=== PATIENT | male | born 1955 | race Caucasian/White ===

== ENCOUNTER 2020-01-15 10:54 | Emergency (ER) | payer OTHER, SELFPAY ==
--- NOTE | ~2020-01-15 | XR_ITS ---
EXAMINATION: XR hip RT min 2V DATE: 01/15/2020 11:28 INDICATION: One month of right hip pain TECHNIQUE: Anteroposterior , frog leg and cross-table lateral views of the right hip were obtained. COMPARISON: None. FINDINGS: Bone alignment is normal. No fracture. No suspected avascular necrosis at the right femoral head. Rig ht hip and sacroiliac joint spaces appear normal. Enthesophytes along the anterior iliac spine and gr eater trochanter. Couple sclerotic lesions at the right ischium most likely representing bone islands . IMPRESSION: 1. Normal right hip joint space with no acute osseous abnormality. Reviewed, dictated and finalized at location A.
[2020-01-15 11:04] VITALS: BP 126/70; PULSE 88; RESP 18; TEMP 36.9; O2SAT 98
--- NOTE | 2020-01-15 11:04 | ED.LOWEXIN ---
HPI - Extremity Injury (Lower) General Chief Complaint: Extremity Injury, Lower Stated Complaint: leg pain Time Seen by Provider: 01/15/20 11:08 Source: patient and RN notes reviewed Mode of arrival: ambulatory Limitations: no limitations History of Present Illness HPI Narrative: 64-year-old male presents with concern for right groin/hip pain. Reports pain near the fold of his right upper leg between the hip and the groin. Reports tenderness in this area. Reports pain is exacerbated with movement, getting out of bed. Reports he is able to find positions of comfort. Denies abdominal pain, dysuria, hematuria, slow urine stream, bulging masses, nausea, vomiting, diarrhea, constipation, back pain, painful ejaculation. He denies any injury, trauma, fall MD complaint: other (hip pain) Injury: Right: hip Related Data Allergies Allergy/AdvReac Type Severity Reaction Status Date / Time No Known Allergies Allergy Unverified 10/10/19 07:39 Review of Systems Review of Systems: Narrative: CONSTITUTIONAL: Denies malaise, chills, sweats, or fever. CARDIOVASCULAR: Denies chest pain, palpitations, or edema. GASTROINTESTINAL: Denies abdominal pain, nausea, vomiting, diarrhea, bloody, or mucous stools. GENITOURINARY: Denies dysuria or hematuria. SKIN: Denies bruising, redness MUSCULOSKELETAL: Denies back pain or myalgia. Reports right anterior hip pain NEUROLOGIC: Denies numbness, weakness All systems reviewed & are unremarkable except as noted in HPI and below PMFSH Comments At time of signature, agree with nursing past medical, surgical, social and family history. There is no relevant family history pertinent to the presenting complaint Exam Narrative: Exam Narrative: GENERAL: Well-appearing, well-nourished, and in no acute distress. HEAD: Normocephalic, atraumatic. EYES: PERRLA, conjunctivae clear NECK: Supple. CHEST: Speaks in full sentences. No respiratory distress. HEART: Regular rate and rhythm. Normal and equal peripheral pulses. EXTREMITIES: Right hip, leg has normal strength and sensation, no edema, normal range of motion. 5/5 strength with hip flexion and extension. Normal sensation with sensitivity to light touch and pain. No open wounds, no skin tenting, no devitalized tissue or atrophy, no trophic changes, no ecchymosis, no obvious deformity, alignment normal, anterior hip tenderness, nearby joints and structures intact. Distal pulses palpable and equal bilaterally, skin warm, dry, pink. Capillary refill less than 3 seconds. SKIN: Warm, dry, no rash. NEURO: Alert and oriented x3. PSYCH: Normal mood and affect Course Course Emergency Course: Patient is aware of diagnosis, understands and agrees to treatment plan. Anticipatory guidance given. Patient agrees to follow-up as directed and is aware of reasons to seek care at the emergency department. Portions of this record may have been created with voice recognition software Vital Signs Vital signs: Vital Signs Temperature 98.5 F 01/15/20 11:04 Pulse Rate 88 01/15/20 11:04 Respiratory Rate 18 01/15/20 11:04 Blood Pressure 126/70 01/15/20 11:04 Pulse Oximetry 98 01/15/20 11:04 Temperature 98.5 F 01/15/20 11:04 Pulse Rate 88 01/15/20 11:04 Respiratory Rate 18 01/15/20 11:04 Blood Pressure 126/70 01/15/20 11:04 Pulse Oximetry 98 01/15/20 11:04 Reviewed. MDM - Extremity Injury (Lower) MDM Narrative Medical decision making narrative: Patients injury and/or pain is consistent with musculoskeletal etiology. No signs of neurological or vascular compromise on exam. Compartments and tissues are soft without signs of compartment syndrome. Pain is felt appropriate for further evaluation on an outpatient basis. Differential Diagnosis Differential diagnosis: Likely fracture of femur, fracture of hip and other (hernia, prostatitis, muscle strain, sprain) Imaging Data My impression: Images reviewed, interpreted by radiologist, agree, see report.
== END 2020-01-15 11:48 | disposition home or self-care (01) ==
PROVIDERS: Emergency Provider Nurse Practitioner; PCP Internal Medicine
DX: M25.551 Pain in right hip (principal); I10 Essential (primary) hypertension; E03.9 Hypothyroidism, unspecified; E78.00 Pure hypercholesterolemia, unspecified
CPT/HCPCS: 73502; 99213; G0463

== ENCOUNTER 2020-12-21 19:23 | Emergency (ER) | payer OTHER, SELFPAY ==
--- NOTE | ~2020-12-21 | XR_ITS ---
EXAMINATION: XR chest 1V portable 12/21/2020 19:47 INDICATION: Cough PROCEDURE: AP portable chest COMPARISON: Comparison to multiple prior studies sequentially, with oldest reviewed study dated 09/2016. FINDINGS: The lungs are clear. The cardiomediastinal silhouette is within normal limits. There are no pleural effusions. There is no pneumothorax suspected. IMPRESSION: 1: NO ACUTE CARDIOPULMONARY DISEASE. Reviewed, dictated and finalized at location A.
[2020-12-21 19:26] VITALS: BP 130/71; PULSE 73; RESP 19; TEMP 36.8; O2SAT 95
[2020-12-21 19:53] VITALS: BP 133/71; PULSE 61; RESP 16; TEMP 36.7; O2SAT 96
--- NOTE | 2020-12-21 19:58 | PC.NURSE ---
Pt presents to ED with complaints of persistent cough that was sudden onset. Pt denies covid contacts, fever, chills, chest pain, nvd, and sob. cough noted to be dry, intermittent and non productive. Breathing noted to be even and unlabored with O2 saturation of 96% on room air. Pt alert and oriented x4 and no obvious distress. Call button and personal items within reach. Pt advised to press call button for assistance.
--- NOTE | 2020-12-21 20:25 | PC.NURSE ---
Pharmacy called for benzonotate. [facility] med was tubed five minutes ago. Unable to locate med at this time. Will return call to pharmacy if unsuccessful.
--- NOTE | 2020-12-21 20:30 | PC.NURSE ---
Med was accidentally tubed back to pharmacy. Med received; will administer.
[2020-12-21] MEDS: BENZONATATE 100 MG CAPSULE 200 MG PO (20:32)
--- NOTE | 2020-12-21 20:36 | PC.NURSE ---
Pt resting on cart. Cough noted to decrease in frequency and pt states he feels better. Remains alert and oriented x4 with stable vitals and pt in no obvious distress. Advised to press call button for assistance.
--- NOTE | 2020-12-21 20:51 | ED.GENADULT ---
HPI - General Adult General Chief complaint: Upper Respiratory Infection Stated complaint: Cough Time Seen by Provider: 12/21/20 19:31 History of Present Illness HPI narrative: Patient is a 65-year-old male who presents ER with cough. Ongoing for couple weeks. Has history of seasonal allergies and it seems to correlate when things begin to garcia. He has been using [id number] allergy relief and has been using mucous medication. Only minor improvement. No fevers or chills or sweats. Cough is occasionally productive and associated with postnasal drip. Patient is also been using his Advair but has not been using his rescue inhaler. Patient received a Covid vaccine 2 weeks ago. Related Data Allergies Allergy/AdvReac Type Severity Reaction Status Date / Time No Known Allergies Allergy Verified 12/21/20 19:29 Review of Systems Review of Systems: All systems reviewed & are unremarkable except as noted in HPI and below Constitutional: Constitutional: Denies chills and Denies fever(s) Cardiovascular: Cardiovascular: Denies chest pain and Denies radiating jaw, neck or arm pain Respiratory: Respiratory: Denies chest congestion, Reports cough, Denies dyspnea and Denies wheezing Gastrointestinal: Gastrointestinal: Denies abdominal pain, Denies nausea and Denies vomiting PMFSH Past Medical History Medical History (Updated 12/21/20 @ 20:57 by Zhen Cortés MD) Acquired hypothyroidism Essential hypertension Hyperlipidemia JEREMY (obstructive sleep apnea) Family History Family History (System 08/16/20 @ 10:18 by Tricia Manning) Father Family history of cardiovascular disease Hypertension Family history of diabetes mellitus in first degree relative Family history of coronary artery disease Family history of heart disease in male family member before age 55 Mother Family history of cardiovascular disease Family history of malignant neoplasm of breast in first degree relative Father Hypertension Family history of diabetes mellitus in first degree relative Family history of coronary artery disease Family history of heart disease in male family member before age 55 Mother Family history of malignant neoplasm of breast in first degree relative Social History Social History (System 08/16/20 @ 10:18 by Tricia Manning) Smoking status: Never smoker Alcohol intake: never Exam Narrative: Exam Narrative: GENERAL: Well-appearing, well-nourished, and in no acute distress. HEAD: Normocephalic, atraumatic. CHEST: Clear to auscultation. No respiratory distress. HEART: Regular rate and rhythm. Normal peripheral pulses. ABDOMEN: Soft, nontender, nondistended. EXTREMITIES: Normal range of motion. No edema. SKIN: Warm, dry, no rash. NEURO: N Alert and oriented x3. PSYCH: Normal mood and affect. Course Course Emergency Course: Patient resting comfortably. Informed results. Recommend using albuterol at home to see if it helps with his coughing. Patient given Tessalon Perles to help with cough suppression. Vital Signs Vital signs: Vital Signs Temperature 98.3 F 12/21/20 19:26 Pulse Rate 73 12/21/20 19:26 Respiratory Rate 19 12/21/20 19:26 Blood Pressure 130/71 12/21/20 19:26 Pulse Oximetry 95 12/21/20 19:26 Temperature 98.3 F 12/21/20 19:26 Pulse Rate 73 12/21/20 19:26 Respiratory Rate 19 12/21/20 19:26 Blood Pressure 130/71 12/21/20 19:26 Pulse Oximetry 95 12/21/20 19:26 Medical Decision Making Vital Signs Vital Signs: Vital Signs Temperature 98.3 F 12/21/20 19:26 Pulse Rate 73 12/21/20 19:26 Respiratory Rate 19 12/21/20 19:26 Blood Pressure 130/71 12/21/20 19:26 Pulse Oximetry 95 12/21/20 19:26 Temperature 98.3 F 12/21/20 19:26 Pulse Rate 73 12/21/20 19:26 Respiratory Rate 12/21/20 19:26 Blood Pressure 130/71 12/21/20 19:26 Pulse Oximetry 95 12/21/20 19:26 Discharge Plan Discharge Clinical Imp
[2020-12-21 21:07] VITALS: BP 142/84; PULSE 63; RESP 20; O2SAT 98
[2020-12-21 21:13] VITALS: BP 142/84; PULSE 59; RESP 21; TEMP 36.7; O2SAT 98
[2020-12-21 21:17] VITALS: BP 142/84; PULSE 59; RESP 20; TEMP 36.7; O2SAT 98
== END 2020-12-21 21:18 | disposition home or self-care (01) ==
PROVIDERS: Emergency Provider Emergency Medicine; PCP Internal Medicine
DX: R05 Cough (principal); E03.9 Hypothyroidism, unspecified; I10 Essential (primary) hypertension; E78.5 Hyperlipidemia, unspecified; G47.33 Obstructive sleep apnea (adult) (pediatric)
CPT/HCPCS: 71045; 99283; A9270

== ENCOUNTER 2021-03-31 16:03 | Emergency (ER) | payer OTHER, SELFPAY ==
--- NOTE | ~2021-03-31 | XR_ITS ---
EXAMINATION: XR ankle LT min 3V DATE: 03/31/2021 16:25 INDICATION: Lateral left ankle pain. TECHNIQUE: 4 views of left ankle were obtained. COMPARISON: None. FINDINGS: Bone alignment is normal. No acute fracture. There is mild midfoot osteoarthritis. There is osteoarthritis of the tibiotalar joint including an osteochondral lesion of medial talar dome. 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 There are lo ose bodies in the ankle joint posteriorly. There are enthesophytes at the posterior and plantar aspec ts of calcaneal tuberosity. IMPRESSION: 1. Polyarticular osteoarthritis. 2. Loose bodies in the ankle joint. Reviewed, dictated and finalized at location A.
[2021-03-31 16:14] VITALS: BP 164/76; PULSE 70; RESP 18; TEMP 36.9; O2SAT 100
--- NOTE | 2021-03-31 17:04 | ED.LOWEXIN ---
HPI - Extremity Injury (Lower) General Chief Complaint: Extremity Injury, Lower Stated Complaint: Left Ankle Pain Time Seen by Provider: 03/31/21 17:04 Source: patient Mode of arrival: ambulatory Limitations: no limitations History of Present Illness HPI Narrative: Severino Vega is a 65 yo male with a PMH hypothyroid, OA, asthma, apnea, HTN, high cholesterol, who comes to [facility] with a left ankle spasming that he does not remember any injury and he has no problem walking, no pain. He has not done anything to try and treated. Related Data Allergies Allergy/AdvReac Type Severity Reaction Status Date / Time No Known Allergies Allergy Verified 03/31/21 16:29 Review of Systems Review of Systems: CONSTITUTIONAL: Denies fever, chills, sweats. EYES: Denies visual changes, redness, discharge. ENT: Denies rhinorrhea, congestion, sore throat, otalgia. CARDIOVASCULAR: Denies chest pain, palpitations, edema. RESPIRATORY: Denies dyspnea, wheezing, cough GASTROINTESTINAL: Denies abdominal pain, nausea, vomiting, diarrhea. GENITOURINARY: Denies dysuria, hematuria, abnormal discharge SKIN: Denies rash or itching. NEUROLOGIC: Denies numbness, or focal weakness. PSYCHIATRIC: Denies anxiety or depression. Left ankle spasming PMFSH Past Medical History Medical History (Updated 03/31/21 @ 17:25 by Joleen Anderson CNP) Acquired hypothyroidism Essential hypertension Hyperlipidemia JEREMY (obstructive sleep apnea) Family History Family History Father Family history of cardiovascular disease Hypertension Family history of diabetes mellitus in first degree relative Family history of coronary artery disease Family history of heart disease in male family member before age 55 Mother Family history of cardiovascular disease Family history of malignant neoplasm of breast in first degree relative Father Hypertension Family history of diabetes mellitus in first degree relative Family history of coronary artery disease Family history of heart disease in male family member before age 55 Mother Family history of malignant neoplasm of breast in first degree relative Social History Social History Smoking status: Never smoker Alcohol intake: never Gender identity (if verbalized by the patient): Male Comments At time of signature, I agree with nursing past medical, surgical, social and family history. There is no relevant family history pertinent to the presenting complaint. Exam Narrative: GENERAL: This is a well-nourished, well-developed patient, in mild distress. HEAD: normocephalic, atraumatic. EYES. Sclera clear/white. Vision is grossly intact. EARS: External ears normal,. Hearing grossly intact. NOSE: External nose normal without nasal discharge, nares without redness, no rhinorrhea. THROAT: Mucous membranes moist, NECK: Neck supple, CARDIOVASCULAR: Regular rate and rhythm without murmurs, gallops, or rubs. RESPIRATORY: Clear to auscultation. Breath sounds equal bilaterally. No wheezes, rales, or rhonchi. GASTROINTESTINAL: Abdomen soft, large pannus SKIN: warm, intact with no suspicious lesions or rash, good texture and turgor. NEURO: awake, alert, and oriented to person, place and time. There were no obvious focal neurologic abnormalities. Steady gait EXTREMITIES: Normal range of motion. States his left ankle feels like it spasms but there is no pain no ecchymosis and no swelling of ankle BACK: Nontender without deformity Course Course Emergency Course: 65-year-old male was working on pruning his bushes and his left ankle was spasming denies pain Xray done-mild midfoot osteoarthritis, polyarticular OA, loose bodies and ankle joint nothing acute Discussed with patient taking Zyrtec daily and will renew his amlodipine Vital Signs Vital signs: Vital Signs Temperature 98.4 F 03/31/21 16:14 Pulse
== END 2021-03-31 17:30 | disposition home or self-care (01) ==
PROVIDERS: Emergency Provider Nurse Practitioner; PCP Internal Medicine
DX: M25.572 Pain in left ankle and joints of left foot (principal); E03.9 Hypothyroidism, unspecified; I10 Essential (primary) hypertension; E78.5 Hyperlipidemia, unspecified; G47.33 Obstructive sleep apnea (adult) (pediatric); M19.90 Unspecified osteoarthritis, unspecified site; J45.909 Unspecified asthma, uncomplicated
CPT/HCPCS: 73610; 99213; G0463

== ENCOUNTER 2021-09-02 21:52 | Emergency (ER) | payer MEDICARE, SELFPAY ==
--- NOTE | ~2021-09-02 | XR_ITS ---
XR chest 2V DATE: 09/02/2021 23:59 INDICATION: Cough and chills TECHNIQUE: PA and lateral views COMPARISON: portable AP chest FINDINGS: Normal heart size. No hilar or mediastinal enlargement. No pulmonary infiltrate or consolid ation, pleural effusion or pulmonary vascular congestion or pneumothorax. Degenerative spurring of the thoracic and lumbar spine. IMPRESSION: No active cardiopulmonary disease Reviewed, dictated and finalized at location A. [employer] ANALYST
[2021-09-02 22:16] VITALS: BP 134/55; PULSE 72; RESP 20; TEMP 36.6; O2SAT 98
--- NOTE | 2021-09-02 23:39 | ED.URI ---
HPI - URI/Sore Throat General Chief Complaint: Upper Respiratory Infection Stated Complaint: cough I might have the flu Time Seen by Provider: 09/02/21 23:33 Source: patient Mode of arrival: ambulatory Limitations: no limitations History of Present Illness HPI Narrative: Patient is a 66-year-old male complaining of cough, productive, whitish-yellow sputum, constant started 2 days ago. Patient denies any chest pain, shortness of breath, fever or chills. Patient states that he is fully vaccinated from Covid. Related Data Home Medications Medication Instructions Recorded Confirmed fluticasone 250 mcg-salmeterol 50 1 inh INHALATION BID 08/28/21 08/28/21 mcg/dose blistr powdr for inhalation multivitamin 1 tablet PO DAILY 08/28/21 08/28/21 Allergies Allergy/AdvReac Type Severity Reaction Status Date / Time No Known Allergies Allergy Verified 09/02/21 23:13 [facility] Past Medical History Medical History (Updated 09/03/21 @ 02:13 by Andrea Arvizu MD) Acquired hypothyroidism Essential hypertension Hyperlipidemia JEREMY (obstructive sleep apnea) Family History Family History Father Family history of cardiovascular disease Hypertension Family history of diabetes mellitus in first degree relative Family history of coronary artery disease Family history of heart disease in male family member before age 55 Mother Family history of cardiovascular disease Family history of malignant neoplasm of breast in first degree relative Father Hypertension Family history of diabetes mellitus in first degree relative Family history of coronary artery disease Family history of heart disease in male family member before age 55 Mother Family history of malignant neoplasm of breast in first degree relative Social History Social History Smoking status: Never smoker Alcohol intake: never Gender identity (if verbalized by the patient): Male Exam Const: General: cooperative, healthy appearing, comfortable, no acute distress, well developed, alert and awake; No confusion Orientation/consciousness: oriented to person, oriented to place, oriented to time, patient oriented x3 and No confusion Limitations: no limitations HENMT: Head: normal to inspection, normocephalic and atraumatic Ears: hearing grossly normal bilaterally, TM normal on the right and TM normal on the left General nose exam: Normal external nose present, Normal nares present and No nasal discharge present Face and sinus: normal facial exam Mouth: Yes Normal oral and palatal mucosa present, Yes lip normal, Yes tongue normal and Yes oropharynx normal Throat: posterior oropharynx normal, tonsils normal and uvula midline Eyes: General: appearance normal, both eyes and all related structures Pupils: Equal, round and reactive pupils present EOM: EOMs intact bilaterally Neck: Neck: normal visual inspection, full ROM, no lymphadenopathy and no meningeal signs Chest: Chest palpation & inspection: normal inspection of the chest Resp: Effort & Inspection: normal respiratory effort, able to speak in complete sentences, no respiratory distress and not tachypneic Auscultation: clear to auscultation bilaterally, no crackles, no rales, no rhonchi and no wheezes Cardio: Rate: regular rate Rhythm: regular rhythm GI: Inspection: normal to inspection GI Palp: No abdominal tenderness, Yes Soft to palpation, No Tenderness to palpation present (GI), No Guarding due to palpation present (GI), No Rigid due to palpation and No Rebound tenderness present Auscultation: normal bowel sounds : General: Yes no CVA tenderness Back/Spine/Pelvis: Back: no CVA tenderness Skin: General skin exam: normal color, no rashes or lesions noted, elasticity normal and turgor normal Neuro: General: oriented to person, oriented to place, oriented to time, patient oriented x
[2021-09-03 02:36] VITALS: BP 141/77; PULSE 78; RESP 18; O2SAT 94
[2021-09-03 14:39] LABS: SARS-CoV-2 RNA PCR Positive
== END 2021-09-03 02:38 | disposition home or self-care (01) ==
PROVIDERS: Emergency Provider Emergency Medicine; PCP Internal Medicine
DX: U07.1 COVID-19 (principal); J20.9 Acute bronchitis, unspecified; E03.9 Hypothyroidism, unspecified; I10 Essential (primary) hypertension; E78.5 Hyperlipidemia, unspecified
CPT/HCPCS: 71046; 87804; 99283; C9803; U0003; U0005

== ENCOUNTER 2022-01-25 10:49 | Emergency (ER) | payer MEDICARE, SELFPAY ==
[2022-01-25 11:05] VITALS: BP 136/83; PULSE 64; RESP 20; TEMP 36.8; O2SAT 98
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
== END 2022-01-25 11:37 | disposition home or self-care (01) ==
PROVIDERS: Emergency Provider Nurse Practitioner Family; PCP Internal Medicine
DX: R22.42 Localized swelling, mass and lump, left lower limb (principal); E03.9 Hypothyroidism, unspecified; I10 Essential (primary) hypertension; E78.5 Hyperlipidemia, unspecified; G47.33 Obstructive sleep apnea (adult) (pediatric); Z86.16 Personal history of COVID-19
CPT/HCPCS: 99211; G0463

== ENCOUNTER → 2022-02-13 13:20 | Outpatient (CLI) | payer MEDICARE, SELFPAY ==
--- NOTE | ~2022-02-13 | US_ITS ---
EXAMINATION: US soft tissue LE DATE: 02/13/2022 13:44 INDICATION: Localized swelling, mass and lump, left lower limb. TECHNIQUE: Multiple grayscale and Doppler ultrasound images of the left lower limb were obtained. COMPARISON: None FINDINGS: In the anterior thigh, there is a 15.1 x 4.8 x 6.6 cm hypoechoic and anechoic mass. IMPRESSION: 1. 15.1 x 4.2 x 6.6 cm mass in anterior left thigh, which may be an intramuscular hematoma or less li kendrick a neoplasm. Reviewed, dictated and finalized at location B. IMPRESSION: 1. 15.1 x 4.2 x 6.6 cm mass in anterior left thigh, which may be an intramuscul ar hematoma or less likely a neoplasm.
== END ==
PROVIDERS: PCP Internal Medicine; Visit Provider Internal Medicine
DX: R22.42 Localized swelling, mass and lump, left lower limb (principal)
CPT/HCPCS: 76882

== ENCOUNTER 2022-12-09 08:24 | Outpatient (CLI) | payer MEDICARE, SELFPAY ==
--- NOTE | 2023-01-05 20:35 | WPDSLEEPSTUD ---
Sleep Study Date of Study: 12/09/22 Ordering Provider: Ameena Suarez APRN Interpreting Physician: Ailyn Caicedo MD Sleep Study Type: Split Polysomnogram Height: 1.73 m Weight: 122.016 kg Body Mass Index: 40.8 Neck Circumference (inches): 19.5 [place]: 6 Reason for Sleep Study Long history of obstructive sleep apnea for over 20 years, patient uses oxygen at night. Sleep History Severino Vega is a 67-year-old man who has had sleep apnea for 20 years. He uses O2 at night. His current CPAP settings are not known. He has used a pillow mask as well as a fullface mask. He does not awaken from sleep feeling short of breath. He rarely awakens at night with heartburn, belching or coughing. He does not snore loudly. He does not have trouble sleeping with a cold. He does not wake up gasping for breath at night. He does not have breathing problems at night observed by others. He occasionally sweats excessively at night. He rarely notices his heart pounding or beating irregularly at night. He occasionally falls asleep in the day, occasionally falls asleep involuntarily but he never falls asleep while driving. He does not have loss of muscle tone with strong emotion. He does not have daytime difficulties due to excessive sleepiness. He does not feel paralyzed on waking or falling asleep. He does not experience vivid dreamlike scenes on waking or falling asleep. He does not feel afraid to go to sleep. Does not have nightmares. He occasionally remembers his dreams. He occasionally has racing thoughts. Does not feel sad, depressed, or anxious. He rarely has muscular tension. He does not notice parts of his body jerking. He does not kick at night. He does not have crawling and aching feelings in his legs. He does not have any kind of leg pain at night. He does not have morning jaw pain. He does not grind his teeth during sleep. He rarely is bothered by pain during the day, rarely awakened by pain at night, rarely wakes up feeling stiff in the morning with sore achy muscles or pain in the neck and spine. He has fatigue. He frequently awakens with morning headaches. Normal bedtime is midnight, falling asleep within 2-3 minutes, typically waking 3 times at night to go to the bathroom. He is able to return to sleep quickly. He wakes in the morning by 9:00 a.m.. On weekends he goes to bed earlier, 10:30 p.m. and wakes by 7:30 a.m.. Habits: Never smoked tobacco. Caffeine 2 cups a day. No alcohol or recreational substances. [facility] Past Medical History Medical History Acquired hypothyroidism CKD (chronic kidney disease) stage 3, GFR 30-59 ml/min COPD (chronic obstructive pulmonary disease) COVID-19 Essential hypertension Hyperlipidemia JEREMY (obstructive sleep apnea) Surgical History Surgical History H/O craniotomy Hx of tonsillectomy Family History Family History Father Family history of cardiovascular disease Hypertension Family history of diabetes mellitus in first degree relative Family history of coronary artery disease Family history of heart disease in male family member before age 55 Mother Family history of cardiovascular disease Family history of malignant neoplasm of breast in first degree relative Father Hypertension Family history of diabetes mellitus in first degree relative Family history of coronary artery disease Family history of heart disease in male family member before age 55 Mother Family history of malignant neoplasm of breast in first degree relative Social History Social History Smoking status: Never smoker Second hand tobacco smoke exposure: No Alcohol intake: never Substance use: never Substance use type: does not use Lack of Transportation: No Lack of F
[2023-01-06 10:23] VITALS: BMI 40.8
== END 2022-12-10 07:00 | disposition home or self-care (01) ==
LOC: ANHCSM 08:25
PROVIDERS: PCP Internal Medicine; Visit Provider Nurse Practitioner Family
DX: G47.33 Obstructive sleep apnea (adult) (pediatric) (principal); Z68.41 Body mass index [BMI] 40.0-44.9, adult
CPT/HCPCS: 95811

== ENCOUNTER 2023-03-02 11:18 | Emergency (ER) | payer MEDICARE, SELFPAY ==
--- NOTE | ~2023-03-02 | XR_ITS ---
EXAMINATION: XR abdomen/kub 1V INDICATION: Hematuria TECHNIQUE: Supine views of the abdomen were obtained on 2 radiographs. COMPARISON: None FINDINGS: There are multiple pelvic calcifications. There are no dilated loops of bowel. There is at least moderate lumbar spondylosis. Mild osteoarthritis is noted in the hips. IMPRESSION: 1. Pelvic calcifications which may reflect phleboliths or possibly distal ureteral stones. If there i s high clinical suspicion for urolithiasis, further evaluation with CT is recommended. Reviewed, dictated and finalized at location A. IMPRESSION: 1. Pelvic calcifications which may reflect phleboliths or possibly distal urete ral stones. If there is high clinical suspicion for urolithiasis, further evalu ation with CT is recommended.
--- NOTE | 2023-03-02 11:30 | ED.MALEGU ---
HPI - Male Genitourinary General Chief complaint: Urogenital-Male Stated complaint: pain when urinating Time Seen by Provider: 03/02/23 11:56 Source: patient and RN notes reviewed Mode of arrival: ambulatory Limitations: no limitations History of Present Illness HPI Narrative: 67-year-old male presents with concern for sudden onset of pain when urinating this morning, blood in his urine. Reports pain was 6/10 this morning. He reports it has used some, pain while urinating here at the urgent care was 2/10. Reports he did not see any blood in his urine today in the clinic. He denies frequency, urgency, fever, aches, chills, sweats, back pain, nausea, vomiting. Denies testicular redness, swelling, pain. MD Complaint: other (Hematuria) Related Data Home Medications Medication Instructions Recorded Confirmed multivitamin (Daily Multi-Vitamin 1 tablet PO DAILY 08/28/21 03/02/23 tablet) cetirizine 10 mg capsule (Wal-Zyr 10 mg PO DAILY 03/05/22 03/02/23 (cetirizine)) fluticasone 250 mcg-salmeterol 50 1 inh inhalation DAILY 03/02/23 03/02/23 mcg/dose blistr powdr for inhalation (Wixela Inhub) Allergies Allergy/AdvReac Type Severity Reaction Status Date / Time No Known Allergies Allergy Verified 03/02/23 11:28 Review of Systems Review of Systems: CONSTITUTIONAL: Denies malaise, chills, sweats, or fever. CARDIOVASCULAR: Denies chest pain, palpitations, or edema. RESPIRATORY: Denies cough or dyspnea. GASTROINTESTINAL: Denies abdominal pain, nausea, vomiting, diarrhea GENITOURINARY: Reports dysuria or hematuria. Denies frequency, urgency, flank pain SKIN: Denies rash or itching. MUSCULOSKELETAL: Denies back pain, joint pain, or myalgia. All systems reviewed & are unremarkable except as noted in HPI and below PMFSH Past Medical History Medical History Acquired hypothyroidism CKD (chronic kidney disease) stage 3, GFR 30-59 ml/min COPD (chronic obstructive pulmonary disease) COVID-19 Essential hypertension Hyperlipidemia JEREMY (obstructive sleep apnea) Surgical History Surgical History H/O craniotomy Hx of tonsillectomy Family History Family History Father Family history of cardiovascular disease Hypertension Family history of diabetes mellitus in first degree relative Family history of coronary artery disease Family history of heart disease in male family member before age 55 Mother Family history of cardiovascular disease Family history of malignant neoplasm of breast in first degree relative Father Hypertension Family history of diabetes mellitus in first degree relative Family history of coronary artery disease Family history of heart disease in male family member before age 55 Mother Family history of malignant neoplasm of breast in first degree relative Social History Social History Smoking status: Never smoker Second hand tobacco smoke exposure: No Alcohol intake: never Substance use: never Substance use type: does not use Lack of Transportation: No Lack of Food: Never True Current Housing: I Have Housing Concerned About Future Housing: No Difficulty Paying Gas/Electric Bills: No Difficulty Paying for Meds: No Currently Unemployed: No Education: Bachelor's Degree Difficulty w/ Childcare or Family Care: No Gender identity (if verbalized by the patient): Male Comments At time of signature, agree with nursing past medical, surgical, social and family history. There is no relevant family history pertinent to the presenting complaint Exam Narrative: GENERAL: Well-appearing, well-nourished, and in no acute distress. HEAD: Normocephalic. EYES: PERRLA, conjunctivae clear. NECK: Supple. No lymphadenopathy CHEST: Clear to auscultatio
[2023-03-02 11:36] VITALS: BP 139/69; PULSE 61; RESP 16; TEMP 36.7; O2SAT 99
== END 2023-03-02 12:48 | disposition home or self-care (01) ==
PROVIDERS: Emergency Provider Nurse Practitioner; PCP Internal Medicine
DX: N20.0 Calculus of kidney (principal); I12.9 Hypertensive chronic kidney disease with stage 1 through stage 4 chronic kidney disease, or unspecified chronic kidney disease; N18.30 Chronic kidney disease, stage 3 unspecified; E03.9 Hypothyroidism, unspecified; J44.9 Chronic obstructive pulmonary disease, unspecified; E78.5 Hyperlipidemia, unspecified
CPT/HCPCS: 74018; 81003; 99213; G0463

== ENCOUNTER → 2023-08-09 07:30 | Outpatient (CLI) | payer MEDICARE, SELFPAY ==
--- NOTE | ~2023-08-09 | US_ITS ---
Limited Abdominal Sonogram: Real-time sonographic imaging of the right upper quadrant was performed. Clinical History: Abnormal findings of blood chemistry Findings: The liver appears echogenic, with no evidence of mass lesion or bile duct dilatation. Main portal vein demonstrates normal direction of flow. The gallbladder is partially distended, and appea rs normal with no evidence of gallstone or wall thickening. The common bile duct measures 5 mm. The visualized pancreas, aorta, and IVC are unremarkable. 6.2 cm right renal cyst incidentally noted. Impression: Diffuse fatty infiltration of the liver. Reviewed, dictated and finalized at location . [employer] Impression: Diffuse fatty infiltration of the liver.
== END ==
PROVIDERS: PCP Family Medicine; Visit Provider Family Medicine
DX: R79.89 Other specified abnormal findings of blood chemistry (principal); K76.0 Fatty (change of) liver, not elsewhere classified
CPT/HCPCS: 76705

== ENCOUNTER 2025-06-23 18:57 | Emergency (ER) | payer MEDICARE, SELFPAY ==
--- NOTE | 2025-06-23 19:10 | ED.DIZZY ---
HPI - Dizziness General Chief Complaint: Dizziness Stated Complaint: Dizziness Time Seen by Provider: 06/23/25 19:10 Source: patient, RN notes reviewed and old records reviewed Mode of arrival: ambulatory Limitations: no limitations History of Present Illness HPI Narrative: 69 year old male who presents with complaints of noting some episodes of dizziness today and feeling off balanced when he was walking. Patient reports no symptoms when he is sitting. Patient reports that he can't distinguish if room is spinning or if he is moving. Patient reports no visual changes, headaches, no speech changes or any weakness in any extremity. Patient reports no chest pain or any shortness of breath reports that he was recently treated on the 7th of the month for exacerbation of his COPD with prednisone, Azithromycin and Albuterol and reports that he is not having any acute dyspnea. Ortho static blood pressure reading unremarkable, moves all extremities well face symmetiric.Alert and oriented X4 MD elicited complaint: dizziness Onset (ago): day(s) (intermittently today) Severity: mild Description: other (states dizziness) Exacerbating factors: standing and other (ambulation) Related Data Home Medications ?Medication ?Instructions ?Recorded ?Confirmed ?Last Taken ?Type multivitamin (Daily Multi-Vitamin 1 tablet PO DAILY 08/28/21 06/05/25 Unknown History tablet) Allergies Allergy/AdvReac Type Severity Reaction Status Date / Time No Known Allergies Allergy Verified 06/23/25 19:18 Review of Systems Review of Systems: CONSTITUTIONAL: Denies fever, chills, or sweats. EYES: Denies visual changes, redness, or discharge. ENT: Denies rhinorrhea, congestion, sore throat, or otalgia. CARDIOVASCULAR: Denies chest pain, palpitations, or edema. RESPIRATORY: Denies cough or dyspnea. GASTROINTESTINAL: Denies abdominal pain, nausea, vomiting, or diarrhea. GENITOURINARY: Denies dysuria or hematuria. SKIN: Denies rash or itching. MUSCULOSKELETAL: Denies back pain, joint pain, or myalgia. NEUROLOGIC: Denies headache, numbness, or weakness reports feelings of dizziness and feeling off balanced when walking no symptoms when sitting. PSYCHIATRIC: Denies anxiety or depression. All systems reviewed & are unremarkable except as noted in HPI and below PMFSH Past Medical History Medical History COPD (chronic obstructive pulmonary disease) CKD (chronic kidney disease) stage 3, GFR 30-59 ml/min COVID-19 Acquired hypothyroidism Essential hypertension Hyperlipidemia JEREMY (obstructive sleep apnea) Surgical History Surgical History H/O craniotomy Hx of tonsillectomy Family History Family History Father Family history of cardiovascular disease Hypertension Family history of diabetes mellitus in first degree relative Family history of coronary artery disease Family history of heart disease in male family member before age 55 Mother Family history of cardiovascular disease Family history of malignant neoplasm of breast in first degree relative Father Hypertension Family history of diabetes mellitus in first degree relative Family history of coronary artery disease Family history of heart disease in male family member before age 55 Mother Family history of malignant neoplasm of breast in first degree relative Social History Social History Smoking status: Never smoker Second hand tobacco smoke exposure: No Alcohol intake: never Substance use: never Substance use type: does not use Lack of Transportation: No Lack of Food: Never True Current Housing: I Have Housing Concerned About Future Housing: No Difficulty Paying Gas/Electric Bills: No Difficulty Paying for Meds: No Currently Unemployed: No Education: Bachelor's Degree Difficulty w/ Childcare or Family Care: No Gender identity (if verbalized by the patient): Male Comments At time of signature, agree with nursing past medical, surgical, social and family history. There is no relevant family history pertinent to the presenting complaint Exam Narrative: GENERAL: Well-appearing, well-nourished, and in no acute distress. HEAD: Normocephalic, atraumatic. EYES: PERRLA and EOMI.no nystagmus, normal macario of vision ENT: Nares clear, no rhinorrhea or epistaxis. Mucous membranes moist. NECK: Supple.no lymphadenopathy CHEST: Clear decreased to auscultation. No respiratory distress. no cough or congestion, SAO2 96% on room air HEART: Regular rate and rhythm. No murmur heard. Normal peripheral pulses. ABDOMEN: Soft, nontender, nondistended, normal active bowel sounds. EXTREMITIES: Normal range of motion. No edema. SKIN: Warm, dry, no rash. NEURO: No focal deficits. Alert and oriented x3.cranial nerve assessment intact, moves all extremities on own power with no lag noted, gait noted to be steady. Course Course Emergency Course: Patient is aware of diagnosis, understands and agrees to treatment plan.? Anticipatory guidance given.? Patient agrees to follow-up as directed and is aware of reasons to seek care at the emergency department. Portions of this record may have been created with voice recognition software Level of Care: Express Care Visit Vital Signs Vital signs: Vital Signs Temperature 36.6 C 06/23/25 19:15 Pulse Rate 74 06/23/25 19:15 Respiratory Rate 18 06/23/25 19:15 Blood Pressure 158/73 H 06/23/25 19:15 Pulse Oximetry 96 06/23/25 19:15 Oxygen Delivery Room Air 06/23/25 19:15 Temperature 36.6 C 06/23/25 19:15 Pulse Rate 75 06/23/25 19:16 Respiratory Rate 18 06/23/25 19:15 Blood Pressure 160/78 H 06/23/25 19:16 Pulse Oximetry 96 06/23/25 19:15 Oxygen Delivery Room Air 06/23/25 19:15 Reviewed MDM - Dizziness Differential Diagnosis Differential diagnosis: Likely benign paroxysmal positional vertigo, vertebral basilar insufficiency, acute vestibular neuronitis and other (dizziness unspecified, ) Medical Records Attestation: I reviewed the patient's medical records. Lab Data Attestation: I reviewed the patient's lab results. Lab results narrative: glucose level 117 per finger stick Labs: Lab Results 06/23/25 Range/Units 19:58 POC Capillary Glucose 117 H (65-105) mg/dl ECG Data EKG #1: ECG completion date: 06/23/25 ECG completion time: 19:40 Prior ECG tracings: not available for review Interpretation: sinus rhythm rate 62 BPM, MO 159ms, QRS 91ms,QT 388ms EKG Interpretation: normal rate, sinus rhythm, widened QRS and RBBB (incomplete right bundle branch) Critical Care Time Critical Care Time Critical Care Time: No Discharge Plan Discharge Clinical Impression: Dizziness, nonspecific Patient Disposition: Home Condition: Stable Instructions: Antibiotic Form, Dizziness (ED) Additional Instructions: Make all position changes slowly Maintain healthy diet drink plenty of water do not skip meal Use your inhalers as prescribed If your symptoms persist, change or worsen significantly before you can contact your personal physician then please, without delay, go to the emergency department for further evaluation. Follow-up with PCP in 7-10 days or sooner if needed Follow up with PCP soon in regards to your blood pressure which is elevated above threshold for referral. Blood pressure above 120/80 may indicate pre-hypertension.160/78 Follow-up with Dr. Bautista 3-5 days Monitor your blood pressure at least 2 times daily and keep record. Patient Language: Danish Prescriptions: New meclizine 25 mg tablet 25 mg PO BID PRN (Reason: dizziness) Qty: 20 0RF No Action multivitamin [Daily Multi-Vitamin] Tablet 1 tablet PO DAILY fluticasone propionate [Flonase Allergy Relief] 50 mcg/actuation spray,suspension 2 spray intranasal DAILY Qty: 16 2RF Rx Instructions: administer into each nostril fluticasone propion-salmeterol [Advair HFA] 230-21 mcg/actuation HFA aerosol inhaler 2 puff inhalation BID Qty: 12 1RF Rx Instructions: administer with spacer Wegovy 0.25 mg/0.5 mL pen injector 0.25 mg subcut WEEKLY Qty: 2 0RF Rx Instructions: administer weeks 1 through 4 of therapy albuterol sulfate 90 mcg/actuation HFA aerosol inhaler 1 inh inhalation Q4H PRN (Reason: shortness of breath or wheezing) Qty: 8.5 1RF amlodipine 10 mg tablet See Rx Instructions .ROUTE .COMPLEX Qty: 90 1RF Dose Instruction: TAKE 1 TABLET BY MOUTH DAILY Rx Instructions: TAKE 1 TABLET BY MOUTH DAILY atorvastatin 10 mg tablet See Rx Instructions .ROUTE .COMPLEX Qty: 90 1RF Dose Instruction: TAKE 1 TABLET BY MOUTH DAILY Rx Instructions: TAKE 1 TABLET BY MOUTH DAILY montelukast 10 mg tablet See Rx Instructions .ROUTE .COMPLEX Qty: 90 1RF Dose Instruction: TAKE 1 TABLET BY MOUTH DAILY Rx Instructions: TAKE 1 TABLET BY MOUTH DAILY budesonide-formoterol [Symbicort] 160-4.5 mcg/actuation HFA aerosol inhaler 2 puff inhalation Q12H Qty: 10.2 2RF testosterone [AndroGel] 1 % (50 mg/5 gram) gel in packet 1 packet transdermal DAILY Qty: 150 2RF levothyroxine [Synthroid] 112 mcg tablet 112 mcg PO DAILY Qty: 90 1RF doxazosin 4 mg tablet See Rx Instructions .ROUTE .COMPLEX Qty: 180 0RF Dose Instruction: TAKE 2 TABLETS BY MOUTH DAILY Rx Instructions: TAKE 2 TABLETS BY MOUTH DAILY Follow-up/Referrals: Kevin Bautista MD [Primary Care Provider, [facility]] Time of Disposition: 19:58 Quality [place] Coma Scale Eyes: Open Verbal: Oriented and Alert Motor: Follows Commands [place] Coma Total Score: 15
[2025-06-23 19:15] VITALS: BP 136/81; BP 158/73; PULSE 73; PULSE 74; RESP 18; TEMP 36.6; O2SAT 96
[2025-06-23 19:16] VITALS: BP 160/78; PULSE 75
--- NOTE | 2025-06-23 19:28 | ECG_ITS ---
Test Date: 2025-06-23 19:40:03 Measurements Intervals [place] Rate: 62 P: 48 CO: 159 QRS: 26 QRSD: 91 T: 75 QT: 388 QTc: 396 Interpretive Statements SINUS RHYTHM INCOMPLETE RIGHT BUNDLE BRANCH BLOCK BORDERLINE ECG No previous ECG available for comparison Electronically Signed On 06-24-2025 08:03:38 CDT by Juan A Jones D.O.
== END 2025-06-23 20:12 | disposition home or self-care (01) ==
PROVIDERS: Emergency Provider Registered Nurse; PCP Family Medicine
DX: R42 Dizziness and giddiness (principal); I12.9 Hypertensive chronic kidney disease with stage 1 through stage 4 chronic kidney disease, or unspecified chronic kidney disease; N18.30 Chronic kidney disease, stage 3 unspecified; J44.9 Chronic obstructive pulmonary disease, unspecified; E03.9 Hypothyroidism, unspecified; E78.5 Hyperlipidemia, unspecified; Z86.16 Personal history of COVID-19
CPT/HCPCS: 82948; 93005; 99213; G0463